=== PATIENT | male | born 1965 | race Caucasian/White ===

== ENCOUNTER 2019-12-06 05:36 | Day surgery (SDC) | payer BC ==
[2019-12-06] MEDS ORDERED: LACTATED RINGERS 1,000 ML ONE (06:32)
[2019-12-06] MEDS ORDERED: LIDOCAINE 1% 10 ML VIAL INJ ONE (07:00)
[2019-12-06] MEDS ORDERED: PROPOFOL 200 MG/20 ML VIAL IV ONE (07:00)
--- NOTE | 2019-12-06 10:36 | OP ---
DATE OF PROCEDURE: 12/06/19 PREOPERATIVE DIAGNOSIS: 1. Screening colonoscopy. POSTOPERATIVE DIAGNOSIS: 1. Screening colonoscopy. PROCEDURE: 1. Colonoscopy. SURGEON: Brett Wilson MD FINDINGS: Normal colon. COMPLICATIONS: None. PLAN: Discharge. INDICATION: As stated. PROCEDURE: General anesthesia was induced in the lateral position. Digital rectal exam was normal. The colonoscope was introduced without difficulty and passed routinely to the cecum as identified by the appendiceal orifice and ileocecal valve. Upon withdrawal, all mucosal surfaces appeared normal. No polyps were identified. The patient tolerated the procedure and was awakened and taken to Recovery to be discharged. #[id number] cc: Joe Fierro MD [facility]
[2019-12-06 10:46] VITALS: BP 141/80; TEMP 97.4; O2SAT 100
== END 2019-12-06 10:42 | disposition home or self-care (01) ==
LOC: AMB 05:36
PROVIDERS: ATTEND Surgery
DX: Z12.11 Encounter for screening for malignant neoplasm of colon (principal); M10.9 Gout, unspecified; E78.00 Pure hypercholesterolemia, unspecified
CPT/HCPCS: 00812; 45378; J7120

== ENCOUNTER → 2020-02-11 | Outpatient (CLI) | payer BC | LOC: GMA MATASK 14:55 | PROVIDERS: ATTEND Family Medicine | DX: M1A.9XX1 Chronic gout, unspecified, with tophus (tophi) (principal) ==

== ENCOUNTER → 2020-03-10 | Outpatient (CLI) | payer BC | LOC: GMA MATASK 10:44 | PROVIDERS: ATTEND Family Medicine | DX: M1A.9XX1 Chronic gout, unspecified, with tophus (tophi) (principal) ==

== ENCOUNTER → 2020-03-24 | Outpatient (CLI) | payer BC | LOC: GMA MATASK 11:46 | PROVIDERS: ATTEND Family Medicine | DX: M1A.9XX1 Chronic gout, unspecified, with tophus (tophi) (principal) ==

== ENCOUNTER → 2020-04-07 | Outpatient (CLI) | payer BC | LOC: GMA MATASK 10:50 | PROVIDERS: ATTEND Family Medicine | DX: M1A.9XX1 Chronic gout, unspecified, with tophus (tophi) (principal) ==

== ENCOUNTER → 2020-04-21 | Outpatient (CLI) | payer BC | LOC: GMA MATASK 14:28 | PROVIDERS: ATTEND Family Medicine | DX: M1A.9XX1 Chronic gout, unspecified, with tophus (tophi) (principal) ==